=== PATIENT | female | born 2000 | race Caucasian/White ===

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

== ENCOUNTER 2023-11-20 22:13 | Emergency (ER) | payer OTHER, SELFPAY ==
--- NOTE | 2023-11-20 22:22 | ECG_ITS ---
[facility] Test Date: 2023-11-20 Pat Name: Anabel Rivera Department: Room: Gender: Female E Business Specialist: : 2000 Requested By: Elliott Kidd Order Number: [id number] López MD: Royce Quiroz M.D. Measurements Intervals [place] Rate: 75 P: 70 MA: 141 QRS: 74 QRSD: 93 T: 50 QT: 355 QTc: 396 Interpretive Statements SINUS RHYTHM No previous ECG available for comparison Electronically Signed On 11-21-2023 11:55:40 CDT by Royce Quiroz M.D. [id number]
[2023-11-20 22:29] VITALS: BP 116/73; PULSE 71; RESP 16; TEMP 37.1; O2SAT 100
--- NOTE | 2023-11-20 22:34 | XRR_ITS ---
PROCEDURE INFORMATION: Exam: XR Chest Exam date and time: 11/20/2023 10:57 PM Age: 22 years old Clinical indication: Pain; Chest pressure; Additional info: Chest pain TECHNIQUE: Imaging protocol: Radiologic exam of the chest. Views: 1 view. COMPARISON: CR XR cervical spine min 6V [id number] 05/20/2018 11:48 AM FINDINGS: Lungs: The lungs are adequately expanded. No focal consolidations or pulmonary edema. Pleural spaces: No pleural effusions or pneumothorax. Heart/Mediastinum: No cardiomegaly. Bones/joints: No acute fractures. XR/XR chest 1V portable [id number] IMPRESSION: No acute pulmonary disease.
[2023-11-20 23:36] LABS: Basophils % 0.5 %; Eosinophils # 0.1 10^3/uL (0.0-0.8); Eosinophils % 1.5 %; Hematocrit 38.9 % (36-47); Lymphocytes # 3.9 10^3/uL (0.8-4.8); Lymphocytes % 47.8 %; Mean Corpuscular HGB Conc 33.7 g/dL (30-55); Mean Corpuscular Hemoglobin 28.4 pg (27-33); Mean Corpuscular Volume 84.2 fl (85-98); Mean Platelet Volume 9.6 fL (7.4-10.4); Monocytes # 0.7 10^3/uL (0.2-0.9); Monocytes % 8.6 %; Neutrophils # 3.38 10^3/uL (1.8-7.7); Neutrophils % 41.5 %; Nucleated Red Blood Cells % 0 %; Platelet Count 365 10^3/cmm (157-399); Red Blood Count 4.62 10^6/uL (3.85-5.65); Red Cell Distribution Width 11.6 % (12.1-15.1); White Blood Count 8.14 10^3/uL (3.29-11.43)
[2023-11-20 23:49] VITALS: BP 112/60; PULSE 66; RESP 18; O2SAT 98
[2023-11-20 23:52] LABS: Troponin(5th) Baseline < 6 ng/L (0-10)
[2023-11-20 23:54] LABS: Alanine Aminotransferase 32 U/L (0-33); Albumin Level 4.6 g/dL (3.5-5.2); Alkaline Phosphatase 88 U/L (35-105); Anion Gap 17.8 (5-19); Aspartate Amino Transferase 24 U/L (0-32); Blood Urea Nitrogen 11 mg/dL (6-20); Calcium 9.6 mg/dL (8.5-10.5); Carbon Dioxide 22 mmol/L (22-29); Chloride 105 mmol/L (98-107); Creatinine Clr Calc Pharmacy 121.4762; Globulin 2.4 g/dL (1.3-4.6); Glucose 106 mg/dL (65-115); Osmolality Calculated 292 mOsm/kg (285-295); Potassium 3.8 mmol/L (3.5-5.1); Sodium 141 mmol/L (136-145); Total Bilirubin 0.2 mg/dL (0.15-1.2)
--- NOTE | 2023-11-21 00:07 | ED_ITS ---
HPI - Chest Pain 2 General: Chief Complaint: Chest Pain Stated Complaint: chest pain Time Seen by Provider: 11/20/23 22:36 History of Present Illness: Presents to the ER with left chest pain. She states this started around 2030 this evening. Denies any cardiac history but does states she vapes. Patient said it feels dull and achy almost like a pulled muscle. Patient denies any nausea vomiting shortness of breath diaphoresis. Review of Systems 2 General: Reports: 10 or more systems reviewed and unremarkable except in HPI and below PFSH ED 2 PFSH: Social History (Updated 04/22/20 @ 14:34 by Telma Mari LPN) Smoking and tobacco/nicotine status: never used tobacco/nicotine Female Reproductive History: Date of last menstrual period: 11/16/23 Physical Exam 2 Const: COMMON NORMALS: no acute distress, average body habitus, patient oriented x3, no limitations, healthy appearing, alert and well nourished HENMT: COMMON NORMALS: normocephalic, atraumatic, hearing grossly normal bilaterally, external ears normal, Normal external nose present and moist oral mucous membranes HEAD & SCALP: normocephalic and atraumatic NOSE: Normal external nose present EXTERNAL EAR: Yes external ears normal Neck/C-Spine: COMMON NORMALS: no JVD Chest: COMMONS NORMALS: normal inspection of the chest and normal palpation of entire chest wall Resp: COMMON NORMALS: normal respiratory effort, No retractions, No use of accessory muscles and clear to auscultation bilaterally AUSCULTATION: clear to auscultation bilaterally Cardio: COMMON NORMALS: no JVD, regular rate, regular rhythm, S1 normal heart sound present, S2 normal heart sound present, No gallops present (Cardio), No clicks present (Cardio), No murmurs present (Cardio) and No rub (Cardio) R ATE: regular rate RHYTHM: regular rhythm HEART SOUNDS: S1 normal heart sound present and S2 normal heart sound present GI: COMMON NORMALS: Normal to inspection, nondistended, normoactive bowel sounds present, Soft to palpation, non-tender, No hepatosplenomegaly present and no masses PALPATION: Yes Soft to palpation and Yes No hepatosplenomegaly present Neuro: COMMON NORMALS: patient oriented x3 SENSORIUM/ORIENTATION: Yes alert Course 2 Vital Signs: Vital signs: Vital Signs Temperature 98.7 F 11/20/23 22:29 Pulse Rate 66 11/20/23 23:49 Respiratory Rate 18 11/20/23 23:49 Blood Pressure 112/60 11/20/23 23:49 Pulse Oximetry 98 11/20/23 23:49 Oxygen Delivery Me thod Room Air 11/20/23 22:29 MDM - Chest Pain Medical Decision Making Patient was worked up in a standard chest pain fashion with serial EKGs, enzymes and chest x-ray, all of which was essentially negative. It is felt that the patient's chest pain is noncardiac in nature. Patient be discharged home. Differential Diagnosis Unlikely acute massive pulmonary embolism, acute respiratory failure, acute myocardial infarction, cardiac arrest or sudden cardiac Medical Records I reviewed the patient's medical records. Lab Data I reviewed the patient's lab results. 11/20/23 23:25 11/20/23 23:25 Radiology Impressions Chest X-Ray 11/20/23 22:34 IMPRESSION: No acute pulmonary disease. Laboratory Results WBC 8.14 10^3/uL (3.29-11.43) 11/20/23 23:25 RBC 4.62 10^6/uL (3.85-5.65) 11/20/23 23:25 Hgb 13.10 g/dL (11.27-16.99) 11/20/23 23:25 Hct 38.9 % (36-47) 11/20/23 23:25 MCV 84.2 fl (85-98) L 11/20/23 23:25 MCH 28.4 pg (27-33) 11/20/23 23:25 MCHC 33.7 g/dL (30-55) 11/20/23 23:25 RDW 11.6 % (12.1-15.1) L 11/20/23 23:25 Plt Count 365 10^3/cmm (157-399) 11/20/23 23:25 MPV 9.6 fL (7.4-10.4) 11/20/23 23:25 Neut % (Auto) 41.5 % 11/20/23 23:25 Lymph % (Auto) 47.8 % 11/20/23 23:25 [place] % (Auto) 8.6 % 11/20/23 23:25 Eos % (Auto) 1.5 % 11/20/23 23:25 Baso % (Auto) 0.5 % 11/20/23 23:25 Neut # (Auto) 3.38 10^3/uL (1.8-7.7) 11/20/23 23:25 Lymph # (Auto) 3.9 10^3/uL (0.8-4.8) 11/20/23 23:25 [place] # (Auto) 0.7 10^3/uL (0.2-0.9) 11/20/23 23:25 Eos # (Auto) 0.1 10^3/uL (0.0-0.8) 11/20/23 23:25 Baso # (Auto) 0.0 10^3/uL (0.0-0.1) 11/20/23 23:25 Nucleated RBC % (auto) 0 % 11/20/23 23:25 Nucleated RBCs # 0.0 /100WBC 11/20/23 23:25 Sodium 141 mmol/L (136-145) 11/20/23 23:25 Potassium 3.8 mmol/L (3.5-5.1) 11/20/23 23:25 Chloride 105 mmol/L (98-107) 11/20/23 23:25 Carbon Dioxide 22 mmol/L (22-29) 11/20/23 23:25 Anion Gap 17.8 (5-19) 11/20/23 23:25 BUN 11 mg/dL (6-20) 11/20/23 23:25 Creatinine 0.9 mg/dL (0.5-0.9) 11/20/23 23:25 GFR Calculation 79.0 mL/min (90-130) L 11/20/23 23:25 Glucose 106 mg/dL (65-115) 11/20/23 23:25 Calculated Osmolality 292 mOsm/kg (285-295) 11/20/23 23:25 Calcium 9.6 mg/dL (8.5-10.5) 11/20/23 23:25 Total Bilirubin 0.2 mg/dL (0.15-1.2) 11/20/23 23:25 AST 24 U/L (0-32) 11/20/23 23:25 ALT 32 U/L (0-33) 11/20/23 23:25 Alkaline Phosphatase 88 U/L (35-105) 11/20/23 23:25 Troponin T Baseline < 6 ng/L (0-10) 11/20/23 23:25 Total Protein 7.0 g/dL (6.6-8.7) 11/20/23 23:25 Albumin 4.6 g/dL (3.5-5.2) 11/20/23 23:25 Globulin 2.4 g/dL (1.3-4.6) 11/20/23 23:25 All radiology interpretation(s) finalized by discharge Discharge Plan Discharge Patient Disposition: Home Clinical Impression: Atypical chest pain Condition: Stable Prescriptions: No Action No Known Home Medications Discharge Orders: Discharge ED (Routine); Ordered 11/21/23 Ordered By: Elliott Kidd Referrals: Juve Brower DO [Primary Care Provider] - Liz Burns PA [Family Provider] - 1 week Patient Instructions: Noncardiac Chest Pain (ED) Activity Restrictions/Additional Instructions: Thank you for choosing [facility] for your healthcare needs today. Please realize that you were seen in the emergency department and that we are providing you with an emergency medical screening exam and this may not be a complete and all exclusive of all testing and/or medical workup we may need to determine your element or severity of your illness. It is very important that you follow-up as instructed with your primary care provider or specialist for the additional evaluation and to discuss your medical treatment plan. You may return to the emergency department should you have concerns or if your condition changes or worsens in any way. 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
--- NOTE | 2023-11-21 00:33 | ECG_ITS ---
[facility] Test Date: 2023-11-21 Pat Name: Anabel Rivera Department: Room: Gender: Female Chief Design Branch: : 2000 Requested By: Elliott Kidd Order Number: [id number] Maribel MD: Royce Quiroz M.D. Measurements Intervals [place] Rate: 61 P: 68 NV: 149 QRS: 68 QRSD: 97 T: 59 QT: 399 QTc: 405 Interpretive Statements SINUS RHYTHM Compared to ECG 11/20/2023 22:22:57 No significant changes Electronically Signed On 11-21-2023 11:57:46 CDT by Royce Quiroz M.D. [id number]
[2023-11-21 00:35] VITALS: BP 90/55; PULSE 69; RESP 18; O2SAT 98
== END 2023-11-21 00:44 | disposition home or self-care (01) ==
PROVIDERS: Emergency Provider Emergency Medicine; Family Provider Physician Assistant; PCP Family Medicine
DX: R07.89 Other chest pain (principal); F17.290 Nicotine dependence, other tobacco product, uncomplicated
CPT/HCPCS: 71045; 80053; 84484; 85025; 93005; 99285

== ENCOUNTER → 2025-03-14 10:00 | Outpatient (BNVA) | payer OTHER, SELFPAY | PROVIDERS: PCP Family Medicine; Visit Provider Emergency Medicine | DX: J02.9 Acute pharyngitis, unspecified (principal); J35.1 Hypertrophy of tonsils | CPT/HCPCS: 87071; 87880 ==